=== PATIENT | female | born 1995 | race African-American/Black ===

== ENCOUNTER 2021-04-12 14:19 | Inpatient (IN) | payer MEDICAID ==
[~2021-04-12] VITALS: Ht 160 cm; Wt 73.5 kg
[2021-04-12 15:37] LABS: CLARITY URINE CLEAR (CLEAR); COLOR URINE YELLOW (YELLOW); KETONES URINE TRACE (NEGATIVE); LEUKOCYTE ESTERASE URINE TRACE (NEGATIVE); NITRITE URINE NEGATIVE (NEGATIVE); OCCULT BLOOD URINE NEGATIVE (NEGATIVE); PH URINE 6.5 (4.5-8.0); PROTEIN URINE 2+ (NEGATIVE); SPECIFIC GRAVITY URINE 1.023 (1.005-1.030)
[2021-04-12 15:40] LABS: CHLORIDE 105 mEq/L (98-107)
[2021-04-12] MEDS ORDERED: LABETALOL HCL 100MG TABLET PO NR (15:45)
[2021-04-12 15:47] LABS: BASOPHILS % 0.6 % (0.0-2.0); D-DIMER 0.71 mg/L FEU (<0.50); EOSINOPHILS % 3.2 % (0.0-5.0); HEMATOCRIT. 33.6 % (36.0-48.0); HEMOGLOBIN. 11.3 g/dL (12.0-16.0); INR 0.9; LYMPHOCYTES % 27.5 % (20.0-50.0); MEAN CORPUSCULAR HEMOGLOBIN 28.5 pg (28.0-32.0); MEAN CORPUSCULAR VOLUME 84.6 fL (81.0-99.0); MEAN PLATELET VOLUME 10.9 fl (7.4-10.4); MONOCYTES % 8.7 % (2.0-8.0); PARTIAL THROMBOPLASTIN TIME 24.8 sec (23.4-31.0); PLATELET 223 x1000/uL (130-400); PROTHROMBIN TIME 9.9 sec (9.6-11.0); RED BLOOD CELL COUNT 3.97 mill/uL (4.2-5.4); RED CELL DISTRIBUTION WIDTH 12.8 % (11.6-14.6)
[2021-04-12] MEDS: LACTATED RINGERS 1,000 ML IV SCH (16:13)
[2021-04-12] MEDS ORDERED: MAGNESIUM 4 G PREMIX 100 ML IV NR (16:18)
[2021-04-12] MEDS: BETAMETHASONE ACET/BETAMET 30 MG/5 ML VIAL IM NR (16:26)
[2021-04-12] MEDS: MAGNESIUM 20 G PREMIX (L & D) 500 ML IV SCH (17:06)
[2021-04-12] MEDS ORDERED: ACETAMINOPHEN 325MG TABLET PO PRN (18:00)
[2021-04-12 21:46] LABS: CLARITY URINE CLEAR (CLEAR); COLOR URINE YELLOW (YELLOW); KETONES URINE NEGATIVE (NEGATIVE); LEUKOCYTE ESTERASE URINE NEGATIVE (NEGATIVE); NITRITE URINE NEGATIVE (NEGATIVE); OCCULT BLOOD URINE NEGATIVE (NEGATIVE); PROTEIN URINE TRACE (NEGATIVE); SPECIFIC GRAVITY URINE 1.008 (1.005-1.030); UROBILINOGEN URINE 0.2 E.U./dL (0.2-1.0)
[2021-04-12 21:49] LABS: BASOPHILS % 0.3 % (0.0-2.0); EOSINOPHILS % 0.1 % (0.0-5.0); HEMATOCRIT. 36.8 % (36.0-48.0); HEMOGLOBIN. 12.3 g/dL (12.0-16.0); LYMPHOCYTES % 9.2 % (20.0-50.0); MEAN CORPUSCULAR HEMOGLOBIN 28.5 pg (28.0-32.0); MEAN CORPUSCULAR VOLUME 85.1 fL (81.0-99.0); MEAN PLATELET VOLUME 10.6 fl (7.4-10.4); MONOCYTES % 0.7 % (2.0-8.0); NEUTROPHILS % 89.7 % (40.0-76.0); PLATELET 235 x1000/uL (130-400); RED BLOOD CELL COUNT 4.32 mill/uL (4.2-5.4)
[2021-04-12 22:32] LABS: HEPATITIS B SURFACE ANTIGEN NEGATIVE
[2021-04-12 23:29] LABS: CHLORIDE 103 mEq/L (98-107)
[2021-04-12 23:31] LABS: D-DIMER 0.64 mg/L FEU (<0.50); INR 0.9; PARTIAL THROMBOPLASTIN TIME 25.1 sec (23.4-31.0); PROTHROMBIN TIME 9.5 sec (9.6-11.0)
[2021-04-13] MEDS: LACTATED RINGERS 1,000 ML IV SCH (03:28)
[2021-04-13 03:36] VITALS: BP 156/100
[2021-04-13] MEDS: MAGNESIUM 20 G PREMIX (L & D) 500 ML IV SCH ×2 (03:36→13:56)
[2021-04-13 08:11] LABS: *BARBITURATES SCREEN URINE NEGATIVE (NEGATIVE)
[2021-04-13 08:12] LABS: *AMPHETAMINES SCREEN URINE NEGATIVE (NEGATIVE); *BENZODIAZEPINES SCREEN URINE NEGATIVE (NEGATIVE); *COCAINE SCREEN URINE NEGATIVE (NEGATIVE)
[2021-04-13 08:15] LABS: METHADONE URINE SCREEN NEGATIVE (NEGATIVE)
[2021-04-13 08:16] LABS: OPIATES URINE SCREEN NEGATIVE (NEGATIVE); PHENCYCLIDINE URINE SCREEN NEGATIVE (NEGATIVE)
[2021-04-13 08:31] LABS: CANNABINOID URINE SCREEN PRESUMTIVE POSITIVE (NEGATIVE)
[2021-04-13] MEDS ORDERED: LABE200T9 MT (09:21)
[2021-04-13] MEDS ORDERED: LABETALOL HCL 200MG TABLET PO SCH ×2 (10:12→21:00)
[2021-04-13] MEDS: BETAMETHASONE ACET/BETAMET 30 MG/5 ML VIAL IM NR (17:17)
== END 2021-04-13 18:35 | disposition home or self-care (01) | DRG 566 ==
LOC: OBSVTOIN 14:19 → 8 EST LDRP 14:19
PROVIDERS: ADMIT Obstetrics & Gynecology; ATTEND Obstetrics & Gynecology
DX: O26.893 Other specified pregnancy related conditions, third trimester (principal); F12.10 Cannabis abuse, uncomplicated; O99.323 Drug use complicating pregnancy, third trimester; R03.0 Elevated blood-pressure reading, without diagnosis of hypertension; Z3A.29 29 weeks gestation of pregnancy
CPT/HCPCS: 36415; 76805; 76818; 80053; 80305; 80349; 81003; 83735; 84550; 85025; 85379; 85384; 86592; 86703; 86762; 86850; 86900; 87340; J0702; J3475; J7120; A4315

== ENCOUNTER 2025-03-26 18:09 | Emergency (ER) | payer MEDICAID ==
[~2025-03-26] VITALS: Ht 170.2 cm; Wt 73.0 kg
[~2025-03-26 18:09] MED LIST: LABE200T9 MT
[2025-03-26 18:11] VITALS: TEMP 37.2; O2SAT 97
[2025-03-26] MEDS: LIDOCAINE HCL/EPINEPHRINE 1%-EPI 1:100,000 20ML VIAL INFIL ONE (19:30)
[2025-03-26] MEDS: KETOROLAC 30MG/ML VIAL IM ONE (20:59)
[2025-03-26] MEDS: MORPHINE SULFATE 4 MG/ML INJ (FOR IV/IM USE) IM ONE (20:59)
[2025-03-26] MEDS ORDERED: CLIN-194 MT (22:38)
[2025-03-26] MEDS ORDERED: IBUP-2029 MT (22:38)
[2025-03-26] MEDS: HYDROCODONE/ACETAMINOPHEN 5/325MG TABLET PO ONE (23:34)
[2025-03-27 00:13] VITALS: BP 109/76; PULSE 64; RESP 12; O2SAT 99
[2025-03-27 00:42] LABS: HEPATITIS B SURFACE ANTIGEN NEGATIVE (Negative)
[2025-03-27 00:55] LABS: HIV 1/2 AB P24AG Negative (Negative)
[2025-03-27 01:03] LABS: HEPATITIS A AB IGM NEGATIVE (Negative)
[2025-03-27 01:04] LABS: HEPATITIS B CORE AB IGM NEGATIVE (Negative); HEPATITIS C AB NON REACTIVE (Neg) (Negative)
[2025-03-27 05:50] LABS: HEPATITIS B SURFACE ANTIGEN NEGATIVE
== END 2025-03-27 00:16 | disposition home or self-care (01) ==
LOC: ER 18:09
DX: N61.1 Abscess of the breast and nipple (principal); Z79.899 Other long term (current) drug therapy
CPT/HCPCS: 87340; 36415; 86705; 86709; 10060; 96372; 99284; J1885; J2270; Z7610

== ENCOUNTER 2025-06-19 09:01 | Emergency (ER) | payer MEDICAID ==
[~2025-06-19] VITALS: Ht 167.6 cm; Wt 68.0 kg
[~2025-06-19 09:01] MED LIST changes: +CLIN-194 MT; +IBUP-2029 MT
[2025-06-19 09:03] VITALS: O2SAT 99
[2025-06-19] MEDS ORDERED: SULF1TAB48 MT (09:43)
[2025-06-19] MEDS ORDERED: CEPH500C2 MT (09:43)
[2025-06-19] MEDS: LIDOCAINE HCL 1% 20ML VIAL INFIL ONE (09:49)
[2025-06-19 10:57] VITALS: BP 138/87; PULSE 80; RESP 18; TEMP 36.8; O2SAT 95
== END 2025-06-19 11:10 | disposition home or self-care (01) ==
LOC: ER 09:01
DX: L02.31 Cutaneous abscess of buttock (principal); Z79.899 Other long term (current) drug therapy
CPT/HCPCS: 10061; 99284; J2003; Z7610 ×3